=== PATIENT | female | born 1950 | race Caucasian/White ===

== ENCOUNTER 2019-02-09 09:42 | Emergency (ER) | payer MEDICARE, BC ==
[2019-02-09] MEDS ORDERED: Acetaminophen TAB* 325 MG PO ONE (10:37)
[2019-02-09] MEDS ORDERED: Penicillin VK TAB* 250 MG PO ONE (11:24)
[2019-02-09] MEDS ORDERED: Ibuprofen TAB* 600 MG PO ONE (11:33)
--- NOTE | 2019-02-09 12:44 | UC ---
Throat Pain/Nasal Samuel HPI - HPI Summary HPI Summary: Ms. Foster presents stating that she's had a sore throat especially on the right side for about a day. On arrival she is nontoxic in appearance but is tachycardic with a fever of 103. She denies any congestion or cough or other symptomatology aside from some mild nausea. She was unaware of the fever. - History of Current Complaint Chief Complaint: UCGeneralIllness Stated Complaint: SORE THROAT Time Seen by Provider: 02/09/19 10:32 Hx Obtained From: Patient Onset/Duration: Sudden Onset Severity: Moderate Pain Intensity: 5 Cough: None Associated Signs & Symptoms: Positive: Negative - Allergies/Home Medications Allergies/Adverse Reactions: Allergies Allergy/AdvReac Type Severity Reaction Status Date / Time carbamazepine [From Tegretol] Allergy Swelling Verified 02/09/19 10:27 wool Allergy itchiness Uncoded 02/09/19 10:27 Home Medications: Home Medications Aspirin 81 mg CHEW TAB* 1 tab PO DAILY 02/09/19 [History Confirmed 02/09/19] Levothyroxine TAB* [Synthroid 137 MCG TAB*] 1 tab PO DAILY 02/09/19 [History Confirmed 02/09/19] Metoprolol Tartrate TAB* [Lopressor TAB*] 1 tab PO DAILY 02/09/19 [History Confirmed 02/09/19] Omeprazole 1 tab PO DAILY 02/09/19 [History Confirmed 02/09/19] Rosuvastatin (NF) [Crestor (NF)] 40 mg PO QPM 02/09/19 [History Confirmed ] PMH/Surg Hx/FS Hx/Imm Hx Previously Healthy: Yes - Surgical History Surgical History: Yes Surgery Procedure, Year, and Place: [facility] - Social History Alcohol Use: None Substance Use Type: None Smoking Status (MU): Never Smoked Tobacco Review of Systems All Other Systems Reviewed And Are Negative: Yes Constitutional: Positive: Fatigue Skin: Negative: Rash ENT: Positive: Sore Throat Respiratory: Negative: Shortness Of Breath, Cough Cardiovascular: Positive: Negative Gastrointestinal: Positive: Nausea - Mild Genitourinary: Positive: Negative Motor: Positive: Weakness Physical Exam - Summary Physical Exam Summary: She was nontoxic in appearance on arrival but tachycardic and febrile. Triage Information Reviewed: Yes Appearance: Ill-Appearing - Mildly Vital Signs: Initial Vital Signs Temp 103 F 02/09/19 10:22 Pulse 110 02/09/19 10:22 Resp 20 02/09/19 10:22 BP 150/61 02/09/19 10:22 Pulse Ox 98 02/09/19 10:22 Vital Signs Reviewed: Yes Eye Exam: Normal ENT: Positive: Pharyngeal erythema Dental Exam: Normal Neck: Positive: Enlarged Nodes @ - Right anterior cervical tender lymphadenopathy Respiratory: Positive: Lungs clear, Normal breath sounds, No respiratory distress, No accessory muscle use Cardiovascular: Positive: Tachycardia Abdomen Description: Positive: Nontender, No Organomegaly, Soft Neurological Exam: Normal Throat Pain/Nasal Course/Dx - Course Course Of Treatment: Ms. Foster presented with a high fever which didn't respond well to Tylenol here. She was given ibuprofen also and the combination started to take her to temp down finally. She had anterior cervical lymphadenopathy and and a red throat which was positive for strep. He is given penicillin here. She did improve and I think she is okay to be discharged. We spoke about if she is worsening at all that she should go to the emergency department to consider laboratory work and IV antibiotics or fluids. - Differential Dx/Diagnosis Provider Diagnosis: Strep pharyngitis Discharge ED - Sign-Out/Discharge Documenting (check all that apply): Patient Departure All imaging exams completed and their final reports reviewed: No Studies - Discharge Plan Condition: Stable Disposition: HOME Patient Education Materials: Strep Throat (ED) Referrals: No Primary Care Phys,NOPCP [Primary Care Provider] - Additional Instructions: Please go to the emergency department and if you are worsening in any way. You may need to have IV fluids, IV antibiotics or laboratory testing. - Billing Disposition and Condition Condition: STABLE Disposition: Home
[2019-02-09 12:59] VITALS: BP 142/61
== END 2019-02-09 12:50 | disposition home or self-care (01) ==
LOC: UCEAST 09:42
DX: J02.0 Streptococcal pharyngitis (principal); R53.83 Other fatigue; R59.0 Localized enlarged lymph nodes; R00.0 Tachycardia, unspecified; Z88.8 Allergy status to other drugs, medicaments and biological substances; Z79.82 Long term (current) use of aspirin; Z91.09 Other allergy status, other than to drugs and biological substances
CPT/HCPCS: 87651; 99202; A9270-GY; G0463